=== PATIENT | male | born 1955 | race Caucasian/White ===

== ENCOUNTER 2016-05-18 11:48 | Day surgery (SDC) | payer OTHER ==
[2016-05-09 08:51] LABS: HEMATOCRIT 43.1 % (37.9-51.0); HEMOGLOBIN 14.1 g/dL (13.5-17.0); HGB HCT DIFFERENCE -0.8; MEAN CORPUSCULAR HEMOGLOBIN 31.9 pg (27.0-33.4); MEAN CORPUSCULAR HGB CONC 32.8 g/dL (32.0-36.0); MEAN CORPUSCULAR VOLUME 97 fl (80-97); RED BLOOD COUNT 4.43 10^6/uL (4.35-5.55); RED CELL DISTRIBUTION WIDTH 12.8 % (11.5-14.0); WHITE BLOOD COUNT 4.7 10^3/uL (4.0-10.5)
--- NOTE | 2016-05-09 10:12 | EKG REPORT ---
SEVERITY:- NORMAL ECG - SINUS RHYTHM : Confirmed by: Saranya Vazquez 09-May-2016 10:11:34
[~2016-05-18 11:48] MED LIST: ACETAMINOPHEN 325 MG TABLET PO PRN; BUPIVACAINE HCL 0.25 % INJ/PF (2.5 MG/1 ML) 30 ML VIAL ONE; BUPIVACAINE INJ/PF LIPOSOME/PF 266 MG/20 ML SDV ONE; CEFAZOLIN SODIUM 1 GM in DEXTROSE 5%-WATER 50 ML IV PRN; DEXAMETHASONE SOD PHOSPHATE INJ 4 MG/1 ML VIAL ONE; GLYCOPYRROLATE INJ 0.4 MG/2 ML VIAL ONE; KETOROLAC TROMETHAMINE 60 MG/2 ML SDV ONE; LACTATED RINGERS 1000 ML IV PRN; LIDOCAINE 0.5% INJ-PF (5 MG/ML) 50 ML SDV SUBCUT PRN; LIDOCAINE 2% INJ-PF (20 MG/ML) 10 ML AMPUL ONE; ONDANSETRON HCL INJ/PF 4 MG/2 ML SDV ONE; ROCURONIUM BROMIDE INJ 50 MG/5 ML VIAL IV ONE; SUCCINYLCHOLINE CHLORIDE INJ 200 MG/10 ML VIAL ONE; VECURONIUM BROMIDE INJ 10 MG VIAL IV ONE
[2016-05-18] MEDS ORDERED: FENTANYL CITRATE INJ/PF 250 MCG/5 ML AMPULE ONE (13:07)
[2016-05-18] MEDS ORDERED: MIDAZOLAM 2 MG/2 ML INJ ONE (13:07)
[2016-05-18] MEDS ORDERED: PROPOFOL INJ 200 MG/20 ML VIAL IV ONE (13:08)
[2016-05-18] MEDS ORDERED: FENTANYL CITRATE INJ/PF 100 MCG/2 ML AMPUL IV PRN ×6 (13:51→13:53)
[2016-05-18] MEDS ORDERED: MEPERIDINE HCL/PF INJ 25 MG/1 ML DISP.SYRIN IV PRN ×2 (13:51→13:53)
[2016-05-18] MEDS ORDERED: MORPHINE SULFATE 10 MG/ML INJ IV PRN ×3 (13:51→14:46)
[2016-05-18] MEDS ORDERED: PROMETHAZINE HCL INJ 25 MG/1 ML VIAL IV PRN ×4 (13:51→13:53)
[2016-05-18] MEDS ORDERED: DIPHENHYDRAMINE HCL 50 MG/ML VIAL IV PRN ×2 (13:51→13:53)
[2016-05-18] MEDS ORDERED: OXYCODONE-ACETAMINOPHEN 5-325 MG TABLET PO PRN ×4 (13:51→13:53)
[2016-05-18] MEDS ORDERED: EPHEDRINE SULFATE INJ 50 MG/1 ML AMPULE ONE (13:52)
[2016-05-18] MEDS ORDERED: KETOROLAC TROMETHAMINE 60 MG/2 ML SDV IM PRN (14:46)
[2016-05-18] MEDS ORDERED: RINGERS SOLUTION,LACTATED 1,000 ML IV PRN (14:46)
[2016-05-18] MEDS ORDERED: ONDANSETRON HCL INJ/PF 4 MG/2 ML SDV IV PRN (14:46)
--- NOTE | 2016-05-18 14:56 | Operative Report ---
Operative Report Operative Report: Left inguinal hernia PREOPERATIVE DIAGNOSIS: Left inguinal hernia, indirect POSTOPERATIVE DIAGNOSIS: Same OPERATION: Left inguinal exploration, left inguinal herniorrhaphy with [facility] S large Prolene hernia system prosthesis SURGEON: MATILDE CYR 1ST ASSISTANT DISTRICT ATTORNEY: JANEE MENG ANESTHESIA: GA TISSUE REMOVED OR ALTERED: Left inguinal hernia sac and lipoma cord COMPLICATIONS: None ESTIMATED BLOOD LOSS: scant INTRAOPERATIVE FINDINGS: see below PROCEDURE: Patient was seen in the preop holding area where the left inguinal region was marked by Dr. Cyr. Patient subsequently the operating room where general anesthesia was induced. Arms were extended, and legs were placed in position, and the left inguinal area was prepped and draped sterile fashion. Surgical plan surgical timeout were conducted The left angle region was noted for a scar extending from the medial aspect of the left groin to the right groin. There was no scar over the traditional location for left inguinal herniorrhaphy incision. The skin was anesthetized quarter percent Marcaine, and a standard left inguinal herniorrhaphy incision was made midway between the pubic symphysis and the anterior superior iliac spine. Subcutaneous tissue, Theresa's fascia divided with electrocautery. Deeper tissues were anesthetized with quarter percent Marcaine. The external oblique aponeurosis was opened along direction of its fibers, and the contents of the inguinal canal mobilized. The ilioinguinal nerve and genitofemoral nerve were identified and preserved. Dissection was undertaken without difficulty. There was a moderate sized cord lipoma, and moderate sized indirect inguinal hernia sac. These structures were dissected away from the cord structures in a comprehensive and methodical fashion. The hernia sac was taken to the level of origination in fact was lateral to the inferior epigastric vessels. It was opened, found to contained no visceral structures, closed, twisted and ligated with a 2-0 Vicryl suture at its base. The cord lipoma was taken at the level of the internal ring with a suture ligature and passed off as cord lipoma. We developed the retroperitoneal space bluntly and circumferential fashion to accommodate a prosthesis. A large UA shows Prolene hernia system mesh was brought onto the field after checking expiration date. It was oriented and appropriate configuration, and the inner component was splayed out into the retroperitoneal space bluntly using gentle traction. The external component was then trimmed to the appropriate configuration and sewn to Poupart's ligament and conjoined tendon with approximately 8-0 PDS sutures. An upside down U was created approximately 6 o'clock position to accommodate the cord structures. The internal ring was not too tight. Hemostasis was excellent. We felt the operation was complete. The oblique aponeurosis of the external fascia was closed with 2-0 Vicryl, Theresa's fascia closed with 2-0 Vicryl, 3-0 Vicryl, Dermabond glue and 20 mL of full-strength extraoral deployed into the subcutaneous tissue. Postop procedure well taken recovery in stable condition after successful intubation. The physician surgical supply assistant, Ms. Meng, assistance during this case by: Assisting with retracting tissue, instillation of local anesthesia and closure of skin incisions.
--- NOTE | 2016-05-18 15:00 | PDOC DISCHARGE SUMMARY ---
Discharge Summary (SDC) - Discharge Final Diagnosis: left inguinal hernia Date of Surgery: 05/18/16 Discharge Date: 05/18/16 Condition: Stable Treatment or Instructions: [facility] [address], [place] [address] Discharge Instructions: Open Abdominal Procedures (Hernia, Bowel Surgery) 1.General Information: a. DO NOT DRIVE a car or operative machinery for 1-2 weeks or as long as taking Narcotic pain medication. b. DO NOT consume alcohol, tranquilizers, sleeping medication, or any non- prescribed medication for 24 hours unless approved by your doctor or as long as taking pain medication. c. DO NOT make important decisions or sign any important papers for the first 24 hours after surgery. d. When discharged home the same day as surgery have a responsible person with you the first night. 2.Activity Restriction: 8 weeks; a. Avoid heavy lifting (> 10-15 lbs), straining abdominal muscles and sports, mowing lawn, vacuum pipe cleaner and bending over a lot. b. Walking is important to avoid blood clots in the legs and deep breathing can prevent pneumonia. c. If it fine to go for walks, up and down steps, and ride in a car. 3.Treatment: a. You may remove dressing or Band-Aids the day after surgery and shower then daily is fine, but you should not bathe in a tub or go swimming for 2 weeks. b. If you have paper strips (steri strips) on the skin, do not remove them as they will fall off in the coming weeks. Pat them dry after your shower. Sutures beneath the paper strips dissolve. If you have skin sutures or metal lucho they will be removed on your follow up visit. They may also get wet with a shower. c. Do not use oils, powders, or lotion on your incision. 4.Medications: a. You may take narcotic prescription tablets for pain if needed, one every 4 hours (_Percocet_). b. Stop the narcotic when able since you cannot take it and drive and they cause constipation. You may switch to plain Tylenol, Advil, or Aleve as you transition from the narcotic. Many adults find good pain relief with Advil 600-800 mg three times a day with meal to work well and avoid narcotic use. High dose Advil should only be used for short courses since it can cause indigestion, ulcer bleeding in the stomach and kidney problems. c. You may resume all normal medications unless a change is specified by your doctors. 5.Diet: a. If going home the same day as surgery start with clear liquids, and if you do well then advance to normal foods low inf fat and protein. Smaller portion size may be ashby the first night. b. When discharged after hospital stay you may resume a normal diet. 6.Notify Physician If: a. Pain is not relieved by pain medication b. Persistent nausea and vomiting c. Chills, fever (above 101) d. Persistent bleeding or swelling at the operative site e. Unable to urinate for 6-8 hours f. Increased redness, drainage, or foul smelling discharge from incision 7. Follow Up Care: a. Please call our office to schedule an appointment with your doctor for 2 weeks. In the event of any postoperative problems or questions you may call our office during business hours or the On-Call surgeon through the yarn bleaching machine operator at [facility]. [facility] [phone] [facility] [phone] (Ask for the surgeon lead electrical controls engineer) b. I understand the instructions for my postoperative care as described above and a copy has been given to me. _ Witness Patient/Significant Other Date Prescriptions: Oxycodone HCl/Acetaminophen [Percocet 5-325 mg Tablet] 1 tab PO ASDIR PRN #20 tab PRN Reason: Discharge Diet: As Tolerated Discharge Activity: No Lifting Over 10 Pounds - for 8 weeks, No Lifting/Push/ Pulling - greater than 10 lbs for 8 weeks Report the Following to Your Physician Immediately: Nausea, Vomiting, Increase in Pain, Fever over 101 Degrees, Unusual Bleeding, Redness, Swelling, Drainage- Foul Smelling
[2016-05-18 17:13] VITALS: BP 128/89
== END 2016-05-18 17:13 | disposition home or self-care (01) ==
LOC: OROUT 11:48
PROVIDERS: ATTEND Surgery
PROC: 0YU60JZ Supplement Left Inguinal Region with Synthetic Substitute, Open Approach (ICD-10-PCS; principal; 2016-05-18 14:15)
DX: K40.90 Unilateral inguinal hernia, without obstruction or gangrene, not specified as recurrent (principal); D17.6 Benign lipomatous neoplasm of spermatic cord; H91.90 Unspecified hearing loss, unspecified ear; I10 Essential (primary) hypertension; E78.00 Pure hypercholesterolemia, unspecified; K21.9 Gastro-esophageal reflux disease without esophagitis; Z79.899 Other long term (current) drug therapy
CPT/HCPCS: 93005; 36415; 85027; 88304 ×2; 93010; 49505; C1781; J2250; J0690; J3490 ×4; J1100; J1885; J3010; J0330; J2405; J2704; C9290; 830